=== PATIENT | female | born 1970 | race Caucasian/White ===

== ENCOUNTER 2022-05-08 00:31 | Emergency (ER) | payer SELFPAY ==
[2022-05-08 06:00] VITALS: BP 174/93
--- NOTE | 2022-05-08 08:41 | Electrocardiograph Report ---
[facility] Test Date: 2022-05-08 Test Time: 00:59:33 Pat Name: CAYETANO HERRERA Department: Room: Gender: F Time Study Clerk: MANAS : 1970 Requested By: JODI LOZANO Order Number: [id number] Reading MD: Henry Paul Measurements Intervals [place] Rate: 74 P: 50 TN: 172 QRS: 15 QRSD: 92 T: 8 QT: 439 QTc: 488 Interpretive Statements Sinus rhythm No previous ECG available for comparison Electronically Signed On 05-08-2022 8:40:55 EDT by Henry Paul
== END 2022-05-08 15:03 | disposition left against medical advice (07) ==
LOC: ED 00:31
DX: R07.89 Other chest pain (principal); Z53.21 Procedure and treatment not carried out due to patient leaving prior to being seen by health care provider
CPT/HCPCS: 93005